=== PATIENT | female | born 1935 | race Caucasian/White ===

== ENCOUNTER 2017-03-24 20:47 | Inpatient (IN) ==
[2017-03-24 21:17] LABS: BASO% 0.1 % (0.0-0.8); EOS# 0.02 X1000 (0.0-0.7); EOS% 0.1 % (0.0-10.0); HEMATOCRIT 42.1 % (37.0-47.0); HEMOGLOBIN 14.3 g/dL (12.0-16.0); IMM GRAN# 0.08 X1000 (0.0-0.04); IMM GRAN% 0.4 % (0.0-0.5); LYMPH# 0.81 X1000 (1.2-3.4); LYMPH% 4.5 % (20.5-51.1); MANUAL DIFF NEEDED? NO; MCH 27.8 PG (27-31); MCV 81.7 FL (81-99); MONO# 0.62 X1000 (0.11-0.59); MONO% 3.5 % (1.7-9.3); MPV 11.3 FL (7.4-10.4); NEUT% 91.4 % (42.2-75.2); PLT 204 X1000 (130-400); RBC 5.15 XMIL (4.2-5.4)
[2017-03-24 21:23] LABS: INR 1.26; PROTIME 13.4 Seconds (9.2-11.7); PTT 28.8 Seconds (22.0-36.0)
--- NOTE | 2017-03-24 21:25 | Diag Imaging Result Doc PS360 ---
EXAM: CHEST-PORTABLE HISTORY: AMS TECHNIQUE: AP portable at 2120 COMMENT: The inspiration is somewhat suboptimal. The pulmonary vascularity appears to be increased. There are no previous studies available for comparison. The left ventricle is prominent. There is questionable opacity in the lingula. IMPRESSION: Cardiomegaly and increased pulmonary vascularity. Pulmonary edema versus pneumonia in the lingula. Electronically signed by Carlos Asher 03/24/2017 9:22 PM
[2017-03-24 21:43] LABS: ALBUMIN 4.3 g/dL (3.5-5.0); POTASSIUM 2.8 mmol/L (3.5-5.1); TOTAL BILIRUBIN 4.01 mg/dL (0.20-1.00); TOTAL PROTEIN 7.9 g/dL (6.3-8.3)
--- NOTE | 2017-03-24 21:48 | Diag Imaging Result Doc PS360 ---
EXAM: CT HEAD/C-SPINE W/O CONTRAST HISTORY: neck pain/swelling, syncope, unkown fall. TECHNIQUE: CT of the head and cervical spine without contrast COMMENT: The current study is compared with that of 02/11/2017. There is generalized cerebral atrophy. There is no evidence of mass effect, bleed, abnormal extra-axial fluid collection or hydrocephalus. Compared to the previous study the appearance the brain has not changed significantly. The visualized paranasal sinuses are clear. The calvarium appears to be intact. Cervical spine: There are degenerative disc and facet changes with uncovertebral arthropathy unchanged since the previous study of 02/11/2017. There is some curvature of the lower mid cervical spine with convexity to the right. There is disc space narrowing and mild osteophyte formation at C4-5 and C5-6. There is no evidence of prevertebral soft tissue swelling. No evidence of fracture or subluxation is present. IMPRESSION: No evidence of acute disease. Electronically signed by Carlos Asher 03/24/2017 9:46 PM
--- NOTE | 2017-03-24 21:52 | Diag Imaging Result Doc PS360 ---
EXAM: CT NECK W/O CONTRAST HISTORY: trauma TECHNIQUE: CT of the neck without contrast COMMENT: There is an 11 mm node in the left parotid gland. There is a 15 mm node posterior to the right submandibular gland. There are patchy pulmonary opacities present in the right upper lobe which may represent pneumonia. Some retained fluid is present in the esophagus. There is an apparent 5 mm nodule in the left vallecula. There are no abnormal fluid collections. The nasopharynx is normal in appearance. The mandible appears to be intact as does the hyoid bone and thyroid cartilages. IMPRESSION: Bronchopneumonia. Nonspecific nodes and mucosal nodule in the left vallecula. No evidence of acute posttraumatic change. Electronically signed by Carlos Asher 03/24/2017 9:50 PM
[2017-03-24 21:55] LABS: ALLEN TEST YES; BE -5.5 mmoll (-3.0-3.0); BLOOD TYPE ARTERIAL; DRAW SITE R RADIAL; METHB 1.4 % (0.0-1.5); O2(CT) 16.8 mL/dL (15.0-23.0); PCO2(98.6) 26 mmHg (35-45); PO2(98.6) 70 mmHg (60-100); SAMPLE BLOOD; SAO2 97.2 % (95.0-100.0); THB 12.7 g/dL (11.5-17.4); pH(98.6) 7.43 (7.35-7.45)
[2017-03-24 21:57] LABS: CK INDEX 1.3 (0.0-2.5); CK-MB 17.12 ng/mL (0.0-5.0)
[2017-03-24 21:57] LABS: MODALITY ROOM AIR
[2017-03-24 21:57] LABS: URINE MICRO REVIEW NEEDED? NO; URINE SOURCE CATH
[2017-03-24 22:01] LABS: BILIRUBIN URINE NEGATIVE (NEGATIVE); BLOOD URINE LARGE (NEGATIVE); COLOR YELLOW; GLUCOSE URINE NEGATIVE (NEGATIVE); LEUKOCYTES URINE NEGATIVE (NEGATIVE); NITRITE URINE NEGATIVE (NEGATIVE); PROTEIN URINE 50 mg/dL (NEGATIVE); SP GRAVITY URINE 1.007; TURBIDITY URINE HAZY (CLEAR); UROBILINOGEN URINE NORMAL (NORMAL)
[2017-03-24 22:02] LABS: UR EPITHELIAL CELLS <10 /HPF (<10); URINE BACTERIA 4+ /HPF; URINE CULTURE NEEDED? YES; URINE RBC <10 /HPF (<10); URINE WBC <10 /HPF (<10)
[2017-03-24 22:10] LABS: UR AMPHETAMINES QUAL NONE DETECTED (NONE DETECT); UR BARBITUATES QUAL NONE DETECTED (NONE DETECT); UR BENZODIAZEPIN QUAL NONE DETECTED (NONE DETECT); UR CANNABINOIDS QUAL NONE DETECTED (NONE DETECT); UR COCAINE QUAL NONE DETECTED (NONE DETECT); UR METHADONE QUAL NONE DETECTED (NONE DETECT); UR OPIATES QUAL NONE DETECTED (NONE DETECT); UR OXYCODONE QUAL NONE DETECTED (NONE DETECT); UR PCP QUAL NONE DETECTED (NONE DETECT)
[2017-03-24] MEDS ORDERED: NS 1,000 ML IV ONE (22:14)
[2017-03-25] MEDS ORDERED: ZOSYN 3.375 GM in NS 50 ML IV ONE (00:12)
[2017-03-25] MEDS ORDERED: VANCOMYCIN IV PER PHARMACY MISC SCH ×2 (00:15→04:52)
[2017-03-25] MEDS ORDERED: NS 50 ML ONE (00:30)
[2017-03-25 00:50] LABS: ALLEN TEST YES; BE -3.3 mmoll (-3.0-3.0); BLOOD TYPE ARTERIAL; DRAW SITE R RADIAL; METHB 1.1 % (0.0-1.5); MODALITY ROOM AIR; O2(CT) 16.6 mL/dL (15.0-23.0); PCO2(98.6) 27 mmHg (35-45); PO2(98.6) 66 mmHg (60-100); SAMPLE BLOOD; SAO2 96.6 % (95.0-100.0); THB 12.6 g/dL (11.5-17.4); pH(98.6) 7.46 (7.35-7.45)
[2017-03-25] MEDS ORDERED: VANCOMYCIN 1,500 MG in NS 250 ML IV ONE (01:00)
[2017-03-25] MEDS ORDERED: KLOR-CON PO ONE ×2 (03:20→05:45)
[2017-03-25] MEDS ORDERED: ZOFRAN IV PRN (04:52)
[2017-03-25] MEDS ORDERED: TYLENOL PO PRN (04:52)
--- NOTE | 2017-03-25 05:02 | HISTORY AND PHYSICAL ---
PRIMARY CARE PHYSICIAN: Dr. Sumner. CHIEF COMPLAINT: Status post fall, mental status changes. HISTORY OF PRESENTING ILLNESS: An 81-year-old elderly female with a history of hypertension, chronic kidney disease, who apparently was on the toilet when somehow she got confused or so and sloped over and the family had found her wedged between that the tub and the toilet. She was not really responsive at that time and the family had called EMS and patient was brought to the emergency department. In the ER, she was evaluated. She was more coherent. Patient is hard of hearing at baseline. However, she was so responding. She was noted to have markedly elevated white count and imaging had showed some infiltrates suspicious for pneumonia. Subsequently, she will need hospitalization for further management. At the time of my examination, the patient had denied any headache, chest pain, shortness of breath, hemoptysis but complained of not feeling well. PAST MEDICAL HISTORY: Includes hypertension, chronic kidney disease, colon polyps, hearing loss. PAST SURGICAL HISTORY: Colon surgery. ALLERGIES: No known drug allergies. CURRENT MEDICATIONS: As listed in the medication reconciliation sheet. SOCIAL HISTORY: She is a former smoker. No history of alcohol or illicit drug use. FAMILY HISTORY: Positive for coronary artery disease in mother. REVIEW OF SYSTEMS: Twelve point review of systems is limited due to patient is hard of hearing and somewhat confused. PHYSICAL EXAMINATION: GENERAL: Patient is resting comfortably now. VITAL SIGNS: Temperature 99.6 degrees, pulse 106, respirations 20, blood pressure 115/60. HEENT: Atraumatic, normocephalic. Extraocular movements intact. PERRLA. NECK: No masses. CHEST: Bibasilar rales. CARDIOVASCULAR: Regular rate and rhythm. ABDOMEN: Soft. Positive bowel sounds. EXTREMITIES: Trace edema. NEUROLOGIC: She is awake and arousable. GENITOURINARY: No bladder distention. SKIN: Warm. LABORATORIES AND STUDIES: WBC 17.88, hemoglobin 14.3, hematocrit 42.1, platelets 204,000. Sodium 140, potassium 2.8, chloride 97, CO2 is 14, BUN is 20, creatinine is 2.3, glucose is 155. Urine shows +4 bacteria. ASSESSMENT: An 81-year-old elderly female with a history of hypertension, chronic kidney disease and colon cancer/polyps, who apparently was found by family members wedged between the toilet and the tub. She was moderately disoriented and confused. She was brought to the emergency department where she was noted to have elevated white count and possible urinary tract infection and possible pneumonia as source of infection and it was suspected that she was septic and she will need hospitalization for further management. 1. Altered mental status, multifactorial. 2. Status post fall. 3. Sepsis with increase in the white count and possible source. 4. Suspected pneumonia. 5. Urinary tract infection. 6. Hypokalemia. 7. Hypertension. 8. Chronic kidney disease. PLAN: 1. We will admit patient to medical floor with telemetry at [place]. 2. We will continue with neuro checks. 3. We will check blood cultures. Start patient on IV antibiotics. 4. We will check urine cultures. 5. We will replace electrolytes. 6. Continue with gentle hydration. 7. Put patient on DVT prophylaxis with SCDs. 8. We will continue to follow and reassess. 9. Patient is full code. cc: Hari Drake MD
[2017-03-25] MEDS: NS 1,000 ML IV SCH ×3 (05:56→21:53)
[2017-03-25] MEDS: ZOSYN 3.375 GM in NS 50 ML IV SCH ×3 (05:56→17:02)
[2017-03-25 07:12] LABS: BASO% 0.1 % (0.0-0.8); HEMATOCRIT 37.3 % (37.0-47.0); HEMOGLOBIN 12.6 g/dL (12.0-16.0); IMM GRAN# 0.09 X1000 (0.0-0.04); IMM GRAN% 0.5 % (0.0-0.5); LYMPH# 0.77 X1000 (1.2-3.4); LYMPH% 4.7 % (20.5-51.1); MANUAL DIFF NEEDED? YES; MCH 27.4 PG (27-31); MCHC 33.8 g/dL (33-37); MCV 81.1 FL (81-99); MONO# 0.66 X1000 (0.11-0.59); MPV 10.7 FL (7.4-10.4); NEUT% 90.7 % (42.2-75.2); PLT 111 X1000 (130-400)
[2017-03-25 07:33] LABS: ALBUMIN 2.9 g/dL (3.5-5.0); CALCIUM 8.3 mg/dL (8.8-10.2); POTASSIUM 3.4 mmol/L (3.5-5.1); TOTAL BILIRUBIN 3.7 mg/dL (0.20-1.00)
[2017-03-25 08:44] LABS: BANDS 5 % (0-1); LYMPHS 6 % (21-51); MONO 3 % (1-9)
[2017-03-25] MEDS: TIMOPTIC 0.5% OPH SOLUTION BOTH EYES SCH (08:58)
[2017-03-25] MEDS: PROTONIX PO SCH (08:58)
[2017-03-25] MEDS: CELEXA PO SCH (08:58)
[2017-03-25] MEDS: NORVASC PO SCH (08:58)
[2017-03-25] MEDS: COLACE PO SCH (08:58)
--- NOTE | 2017-03-25 20:59 | Diag Imaging Result Doc PS360 ---
EXAM: US ABDOMEN-COMPLETE HISTORY: hepatitis TECHNIQUE: Abdominal ultrasound COMMENT: There is a cyst arising from the upper pole of the right kidney measuring 3.9 cm in diameter. There are two lower pole cysts of both of which exceed 2.5 cm in size. The visualized portions of the inferior vena cava, aorta and pancreas are within normal limits. Liver is unremarkable in appearance with antegrade flow in the portal vein. There is no evidence of biliary dilatation the common bile duct measuring 3 mm. The gallbladder contains stones which shadow and generally measure less than 5 mm in size. There is no sonographic Lehman sign or para cholecystic fluid. The gallbladder is not particularly distended. The spleen is not enlarged. There is no evidence of hydronephrosis. No abnormal fluid collections are present. IMPRESSION: Cholelithiasis. Electronically signed by Carlos Asher 03/25/2017 8:57 PM
--- NOTE | 2017-03-25 21:31 | PROGRESS NOTE ---
DATE: 03/25/2017 SUBJECTIVE: Today Ms. Hurt referred to be doing a little better. The daughter at the bedside who refers that the brother and the [id number] brought Ms. Hurt because they found her at the bathroom not very responsive. Patient understand was very disoriented and not very communicative. This morning she is more alert, she is more communicative. OBJECTIVE: Vital signs: Blood pressure is 109/72, pulse is 73, respiration is 18, temperature 99.3 degrees, patient is saturating 96% on room air. General: Ms. Hurt 81-year-old female. She was in bed, did not seems to be in any distress. HEENT: Mucosa slight dry. Anicteric. Acyanotic. Neck: Supple. Chest: Good air entry bilateral. There is no crepitations, no rhonchi. Cardiovascular: Regular rate and rhythm. There is no murmurs, no rubs, no gallops. Abdomen: Soft, nontender. Bowel sounds are present. There is no hepatosplenomegaly. Extremities: No pedal edema. Distal pulses are present. 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 Follows basic commands. LABORATORY DATA: WBC is 16.51, hemoglobin is 12.6, platelet count of 110,000. Sodium is 135, potassium is 3.4, chloride is 103, bicarb is 18. ABG reviewed from yesterday. The lactic acid was 5.90, is now 2.7. A CT scan of the neck which was done on presentation shows bronchopneumonia. Chest x-ray. Cardiomegaly with increased pulmonary vascularity, pulmonary edema versus pneumonia in the lingula. A head CT scan and cervical spine CT scan no evidence of acute disease. The blood cultures 2/2 positive for gram-negative rods and urine culture is also positive for gram- negative rods. ASSESSMENT: 1. Altered mental status on presentation secondary to sepsis. 2. Gram-negative dave urinary tract infection with bacteremia. 3. Bronchopneumonia. 4. High anion gap metabolic acidosis on presentation secondary to lactic acidosis improving. 5. Transaminitis. Etiology is unclear, suspect is due to sepsis induced hepatopathy, we will keep track of this. 6. Hypokalemia. We will replace this. The patient current medications include Zosyn and vancomycin for antibiotic coverage. Will repeat patient's chest x-ray tomorrow morning to followup on the lung findings. cc: Tod Abad MD
[2017-03-25] MEDS: ZOCOR PO SCH (21:51)
[2017-03-25] MEDS: XALATAN 0.005% OPH SOLN BOTH EYES SCH (21:52)
[2017-03-26] MEDS: ZOSYN 3.375 GM in NS 50 ML IV SCH ×2 (00:13→06:22)
[2017-03-26] MEDS: NS 1,000 ML IV SCH ×2 (01:22→12:20)
[2017-03-26 07:11] LABS: CALCIUM 7.9 mg/dL (8.8-10.2); EOS# 0.02 X1000 (0.0-0.7); EOS% 0.2 % (0.0-10.0); HEMATOCRIT 34.7 % (37.0-47.0); HEMOGLOBIN 11.4 g/dL (12.0-16.0); IMM GRAN# 0.04 X1000 (0.0-0.04); IMM GRAN% 0.3 % (0.0-0.5); LYMPH# 0.51 X1000 (1.2-3.4); LYMPH% 4.3 % (20.5-51.1); MANUAL DIFF NEEDED? YES; MCH 26.5 PG (27-31); MCHC 32.9 g/dL (33-37); MCV 80.5 FL (81-99); MONO# 0.49 X1000 (0.11-0.59); MONO% 4.1 % (1.7-9.3); MPV 10.7 FL (7.4-10.4); NEUT% 91.1 % (42.2-75.2); PLT 95 X1000 (130-400); POTASSIUM 3.4 mmol/L (3.5-5.1); RBC 4.31 XMIL (4.2-5.4)
[2017-03-26 08:11] LABS: LYMPHS 8 % (21-51); MONO 3 % (1-9)
[2017-03-26 08:42] LABS: ALBUMIN 2.7 g/dL (3.5-5.0); DIRECT BILIRUBIN 0.6 mg/dL (0.00-0.20); TOTAL BILIRUBIN 1.1 mg/dL (0.20-1.00); TOTAL PROTEIN 5.1 g/dL (6.3-8.3)
[2017-03-26] MEDS ORDERED: LEVAQUIN PO SCH (09:00)
[2017-03-26] MEDS ORDERED: KEFLEX PO SCH (09:00)
[2017-03-26] MEDS: CELEXA PO SCH (09:43)
[2017-03-26] MEDS: PROTONIX PO SCH (09:43)
[2017-03-26] MEDS: COLACE PO SCH (09:43)
[2017-03-26] MEDS: NORVASC PO SCH (09:44)
[2017-03-26] MEDS: TIMOPTIC 0.5% OPH SOLUTION BOTH EYES SCH (09:44)
[2017-03-26] MEDS: ROCEPHIN 1 GM in NS 50 ML IV SCH (15:29)
--- NOTE | 2017-03-26 16:39 | PROGRESS NOTE ---
DATE: 03/26/2017 SUBJECTIVE: Today Ms. Hurt referred to be doing okay. The daughter was at the bedside. At the time of the encounter. Ms. Hurt herself is kind of hard of hearing so the daughter has to be doing most of the interval history. OBJECTIVE: Vital signs: Blood pressure is 131/71, pulse of 69, respirations 16, temperature is 99.0 degrees. The patient is saturating 97% on room air. General: Ms. Hurt is an 81-year-old female. She is in bed. She did not seem to be in any remarkable distress. HEENT: Mucosa is pink, slightly dry. Anicteric. Acyanotic. Neck: Supple. Chest: Good air entry bilaterally. No crepitations. No rhonchi. Cardiovascular: Regular rate and rhythm. No murmurs. No rubs. No gallops. Abdomen: Soft, nontender. I did not appreciate any hepatosplenomegaly. Bowel sounds are present. Extremities: No pedal edema. Distal pulses are present. 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 Follows basic commands, but she is hard of hearing. LABORATORY DATA: WBC is down to 11.99, platelet count of 95,000, hematocrit is 11.4. There is no bands on the peripheral smear. Chemistry is also reviewed. Sodium is 136, potassium is 3.4, chloride is 106, bicarb is 20, creatinine is down to 1.3. Total bilirubin is down to 1.10, AST is 300, ALT is 165, alkaline phosphatase is also down to 168. An ultrasound of the abdomen which was done shows some cysts in the kidneys. There is no evidence of biliary dilation. The common bile duct measures 3 mm. However, the gallbladder contains stones which shadow and generally measure less than 5 mL. There is no sonographic Lehman sign or pericholecystic fluid. The gallbladder is not particularly dilated. Spleen is not enlarged. There is no evidence of hydronephrosis. No abnormal fluid collections are present. Cultures have shown urine culture is E. coli. Blood culture is also gram-negative dave and I believe it is probably also going to be an E. coli. ASSESSMENT: 1. Altered mental status on presentation, likely due to sepsis induced encephalopathy. Patient's mentation is now completely cleared. 2. Escherichia coli urinary tract infection. 3. Gram-negative dave bacteremia. I think this is also coming from the UTI and I suspect it is probably going to be E. coli as well. I have discontinued the vancomycin and also the Zosyn and switched the patient to ceftriaxone. I am waiting to see the final ID and sensitivity on the gram-negative in the blood and hopefully be able to switch the patient to something oral. 4. Bronchopneumonia on the chest x-ray. The patient will continue with the current antibiotics. 5. Transaminitis, likely due to sepsis induced hepatopathy versus ischemic liver injury. The liver enzymes seem to be gradually improving. We are going to be observing this. 6. Cholelithiasis without any acute cholecystitis. The patient has been notified about this and has been advised to follow up with surgeons at a later date. There is no acute indication to do any surgery now but I think down the line patient might probably benefit from this. The family member at the bedside has stated that the patient does not want any surgery. 7. High anion gap metabolic acidosis on presentation secondary to lactic acidosis, improved. 8. Hypokalemia. Will continued to replace this. PLAN: So in general I think Ms. Hurt is doing a lot better. We will switch the antibiotics to ceftriaxone for 1 daily administration. Once we get the ID on the blood culture we will probably be able to switch to oral if it is the same E. coli. We will keep a very close eye on the LFTs. The patient has been advised to follow up on outpatient basis with surgery. DISPOSITION: I think on a whole Ms. Hurt is doing well. She does not want to go to rehab. She prefers to go home with home health. We will consult social work with regards to that and get her discharged within 48 hours if she continues to show improvement. cc: Tod Abad MD
[2017-03-26] MEDS: ZOCOR PO SCH (21:24)
[2017-03-26] MEDS: XALATAN 0.005% OPH SOLN BOTH EYES SCH (21:25)
[2017-03-26] MEDS ORDERED: MELATONIN PO ONE (23:59)
[2017-03-27] MEDS: ULTRAM PO PRN ×2 (00:51→21:25)
[2017-03-27] MEDS: NS 1,000 ML IV SCH ×4 (00:54→21:26)
[2017-03-27 04:21] LABS: BASO% 0.1 % (0.0-0.8); EOS# 0.03 X1000 (0.0-0.7); EOS% 0.3 % (0.0-10.0); HEMATOCRIT 31.5 % (37.0-47.0); HEMOGLOBIN 10.6 g/dL (12.0-16.0); IMM GRAN# 0.05 X1000 (0.0-0.04); IMM GRAN% 0.5 % (0.0-0.5); LYMPH# 0.62 X1000 (1.2-3.4); LYMPH% 6.8 % (20.5-51.1); MANUAL DIFF NEEDED? YES; MCHC 33.7 g/dL (33-37); MCV 80.2 FL (81-99); MONO# 0.56 X1000 (0.11-0.59); MONO% 6.1 % (1.7-9.3); MPV 11.2 FL (7.4-10.4); NEUT% 86.2 % (42.2-75.2); PLT 86 X1000 (130-400); RBC 3.93 XMIL (4.2-5.4)
[2017-03-27 04:51] LABS: ALBUMIN 2.3 g/dL (3.5-5.0); CALCIUM 7.6 mg/dL (8.8-10.2); POTASSIUM 3.3 mmol/L (3.5-5.1); TOTAL BILIRUBIN 0.8 mg/dL (0.20-1.00); TOTAL PROTEIN 5.3 g/dL (6.3-8.3)
[2017-03-27 06:24] LABS: BANDS 1 % (0-1); LYMPHS 5 % (21-51); MONO 2 % (1-9)
[2017-03-27 06:25] LABS: HYPOCHROM OCCASIONAL
--- NOTE | 2017-03-27 06:45 | EKG Report ---
Test Performed on : 03/24/2017 8:44:37 PM Test Reason : SYNCOPE Blood Pressure : / mmHG Vent. Rate : 106 BPM Atrial Rate : 097 BPM P-R Int : 000 ms QRS Dur : 078 ms QT Int : 494 ms P-R-T Axes : 000 -33 -13 degrees QTc Int : 656 ms Atrial fibrillation. with rapid ventricular response. Left axis deviation Nonspecific ST abnormality Prolonged QT Abnormal ECG When compared with ECG of 11-FEB-2017 08:50, Atrial fibrillation. has replaced Sinus rhythm. Vent. rate has increased BY [address] now depressed in Anterior leads QT has lengthened Unconfirmed Result
[2017-03-27] MEDS: TIMOPTIC 0.5% OPH SOLUTION BOTH EYES SCH (09:34)
[2017-03-27] MEDS: NORVASC PO SCH (09:34)
[2017-03-27] MEDS: COLACE PO SCH (09:34)
[2017-03-27] MEDS: CELEXA PO SCH (09:34)
[2017-03-27] MEDS: PROTONIX PO SCH (09:37)
[2017-03-27] MEDS ORDERED: VANCOMYCIN 1 GM/NS 1 GM/250 ML IVPB IV SCH (13:00)
[2017-03-27] MEDS: ROCEPHIN 1 GM in NS 50 ML IV SCH (15:10)
--- NOTE | 2017-03-27 20:40 | PROGRESS NOTE ---
DATE: 03/27/2017 SUBJECTIVE: Patient without any new complaints. States she is still very tired and weak notes that she is having difficulty getting out of bed. Denies any chest pain, palpitations. Denies any GI or issues. Currently denies any skin rashes. PHYSICAL: Vital signs: Temperature 98.7, pulse 71, respiratory 22, BP 130/57. General: Patient is awake, alert, oriented. She is currently in no respiratory distress. She is pleasant to talk with. HEENT: Normocephalic, atraumatic. FILOMENA. Neck: Supple. No JVD. CV: Regular rate and rhythm. No murmurs. Chest: Clear. Nonlabored. Abdomen: Soft. Positive bowel sounds. Extremities: Moves all extremities but generalized weakness. ASSESSMENT: 1. Acute metabolic encephalopathy secondary to sepsis resolved. 2. Sepsis secondary to Escherichia coli resolved. 3. Escherichia coli urinary tract infection ventura sensitive. 4. Escherichia coli bacteremia. 5. Bronchopneumonia likely secondary to her Escherichia coli as well, continues to improve. 6. Transaminitis. Liver function tests are continuing to improve. 7. Cholelithiasis without cholecystitis. She is currently eating without any difficulty and therefore will not attempt surgery given her bacteremia as well as her urinary tract infection. 8. Hypokalemia. PLAN: Will continue patient on antibiotics. Continue physical therapy. Certainly expect that she is going to need rehab. Currently she declines this option. However she is unable to get out of bed over the next couple days then will have to readdress this. cc: Nico Hernandez MD
[2017-03-27] MEDS: ZOCOR PO SCH (21:24)
[2017-03-27] MEDS: MELATONIN PO SCH (21:25)
[2017-03-27] MEDS: XALATAN 0.005% OPH SOLN BOTH EYES SCH (21:25)
[2017-03-28] MEDS: PROTONIX PO SCH (06:22)
[2017-03-28] MEDS: ULTRAM PO PRN (06:23)
[2017-03-28] MEDS: NS 1,000 ML IV SCH (06:29)
[2017-03-28] MEDS: COLACE PO SCH (09:38)
[2017-03-28] MEDS: NORVASC PO SCH (09:38)
[2017-03-28] MEDS: CELEXA PO SCH (09:38)
[2017-03-28] MEDS: TIMOPTIC 0.5% OPH SOLUTION BOTH EYES SCH (09:39)
[2017-03-28 10:59] LABS: HEPATITIS PROFILE ACUTE SEE COMMENTS
--- NOTE | 2017-03-28 11:08 | Diag Imaging Result Doc PS360 ---
EXAM: FEMUR MIN 2 VIEWS RIGHT INDICATION: pain TECHNIQUE: 4 views COMPARISON: None. FINDINGS: There is no discrete fracture, dislocation, or significant intrinsic osseous lesion. There are mild degenerative changes at the knee. There is atherosclerotic calcification at the posteromedial thigh. IMPRESSION: Mild degenerative changes at the knee. No evidence of acute osseous abnormality. Electronically signed by Socrates Ludwig 03/28/2017 11:06 AM
--- NOTE | 2017-03-28 11:17 | Diag Imaging Result Doc PS360 ---
EXAM: XRAY HIP UNILATERAL RT HISTORY: pain TECHNIQUE: Two views COMPARISON: None. FINDINGS: No fracture. No dislocation. No significant joint space narrowing. Moderate atherosclerosis. IMPRESSION: No acute abnormality. Electronically signed by Sanjay Painting 03/28/2017 11:14 AM
--- NOTE | 2017-03-28 11:22 | Diag Imaging Result Doc PS360 ---
EXAM: FEMUR MIN 2 VIEWS LEFT INDICATION: PAIN TECHNIQUE: 4 views COMPARISON: None. FINDINGS: There is a small anterior enthesophyte at the patella. There is no discrete fracture, dislocation, or significant intrinsic osseous lesion, otherwise. There is minimal atherosclerotic disease at the acetabular roof on the left. There is atherosclerotic calcification at the right. IMPRESSION: Mild degenerative changes. No definite acute osseous abnormality. Electronically signed by Socrates Ludwig 03/28/2017 11:20 AM
[2017-03-28] MEDS: NORCO-5 PO PRN ×2 (13:56→20:27)
--- NOTE | 2017-03-28 14:07 | PROGRESS NOTE ---
DATE: 03/28/2017 SUBJECTIVE: The patient does complain of some right midthigh pain. It is to be recreated with palpation and it is aggravated with movement. OBJECTIVE: Vital Signs: Blood pressure is 119/49 with a heart rate of 61, respirations are 16, temperature is 98.4 degrees oral with room air saturations of 96%. General: Patient is awake and alert and oriented in no distress. Cardiovascular: Regular rate and rhythm. S1 and S2 appreciated. Pulmonary: Breath sounds are clear with no increased work of breathing noted. Gastrointestinal: Abdomen is soft, nontender, nondistended with bowel sounds in all 4 quadrants. Extremities: No clubbing, cyanosis, or edema. Calves are nontender. Pulses are palpable x4. ASSESSMENT: 1. Acute metabolic encephalopathy secondary to sepsis resolved. 2. Sepsis secondary to Escherichia coli resolved. 3. Escherichia coli urinary tract infection pansensitive. 4. Escherichia coli bacteremia. 5. Bronchopneumonia likely secondary to Escherichia coli as well improving. 6. Transaminitis improving. 7. Cholelithiasis without cholecystitis. She denies any nausea or vomiting. She is tolerating food with no difficulty. Due to her bacteremia and UTI we will not attempt surgery. We will arrange surgery followup on discharge. 8. Hypokalemia. Will trend labs are replete as appropriate. We will continue with her current regimen. Continue physical therapy. Will continue to recommend rehab to the patient as she continues to be unable to get out of bed. Dictated by ROXANNA Welsh for Nico Hernandez MD cc: ROXANNA Welsh MD
[2017-03-28] MEDS: ROCEPHIN 1 GM in NS 50 ML IV SCH (15:33)
--- NOTE | 2017-03-28 17:46 | Extremity Venous Study ---
EXAM: Venous U/S Right Leg HISTORY: pain, decreased sensation TECHNIQUE: Right lower extremity venous Doppler ultrasound COMPARISON: None. FINDINGS: There is normal flow in the veins of the right lower extremity. Normal augmentation. No thrombus. IMPRESSION: No evidence of deep venous thrombosis within the right lower extremity. Electronically signed by Sanjay Painting 03/28/2017 5:44 PM
[2017-03-28] MEDS: XALATAN 0.005% OPH SOLN BOTH EYES SCH (20:27)
[2017-03-28] MEDS: MELATONIN PO SCH (20:28)
[2017-03-28] MEDS: ZOCOR PO SCH (20:28)
--- NOTE | 2017-03-28 21:59 | PROGRESS NOTE ---
DATE: 03/26/2017 SUBJECTIVE: Patient notes that she is having right lower extremity pain, cannot really localize where the pain is. Denies any falling, denies any injury. Denies any swelling or redness to her leg. Denies any fevers or chills. PHYSICAL: Vital signs: Temperature 98.3, pulse 60, blood pressure 120/51, saturations 99% on room air. General: Patient is awake, alert, she is in no respiratory distress. She is extremely hard of hearing. HEENT: Normocephalic, atraumatic. FILOMEAN. Neck: Supple. No JVD. CV: Regular rate, no appreciable murmurs. Chest: Clear. Abdomen: Soft. Extremities: She is noted to move all extremities without any apparent difficulty however she does grimace when she moves the right lower extremity. ASSESSMENT: 1. Altered mental status secondary to sepsis appears improved. 2. Escherichia coli urinary tract infection. 3. Escherichia coli bacteremia. 4. Bronchopneumonia improved. 5. Cholelithiasis without cholecystitis. 6. Hypokalemia resolved. 7. Leukocytosis resolved. White count was 17 currently down to 9 . 8. Hypokalemia resolved. Potassium was 2.8 currently 3.3. 9. Acute renal failure resolved, creatinine on admission was 2.3 currently is back down to her baseline at 1.1. 10. Hyperbilirubinemia also resolved was 4 on admit, currently 0.8. 11. Right lower extremity pain. 12. Hypertension. PLAN: Will check x-ray of her right lower extremity although expect these to be negative. Will follow. Hopefully patient can be transitioned to rehab soon. Will continue antibiotics today, further orders as needed. cc: Nico Hernandez MD
[2017-03-29 06:16] LABS: HEMATOCRIT 33.6 % (37.0-47.0); HEMOGLOBIN 11.5 g/dL (12.0-16.0); MCHC 34.2 g/dL (33-37); MCV 78.9 FL (81-99); MPV 10.5 FL (7.4-10.4); RBC 4.26 XMIL (4.2-5.4)
[2017-03-29] MEDS: PROTONIX PO SCH (06:32)
[2017-03-29] MEDS: NORCO-5 PO PRN ×2 (06:38→16:41)
[2017-03-29 06:54] LABS: ALBUMIN 2.6 g/dL (3.5-5.0); POTASSIUM 3.3 mmol/L (3.5-5.1); TOTAL BILIRUBIN 0.5 mg/dL (0.20-1.00)
[2017-03-29] MEDS ORDERED: ZANAFLEX PO SCH (09:00)
--- NOTE | 2017-03-29 09:01 | Diag Imaging Result Doc PS360 ---
EXAM: LUMBAR SPINE 2-VIEWS HISTORY: RLE pain, decreased sensation TECHNIQUE: Lumbar spine AP and lateral three views COMMENT: There is osteophyte formation anteriorly in the lower thoracic spine and some wedging of the anterior portion of T12 is present. There is anterior osteophyte formation at L1-2. There is curvature of the lumbar spine with convexity to the right. There is generalized osteopenia. There is grade 1 anterolisthesis of L4 on L5 and vacuum disc phenomenon and disc space narrowing at L5 S1. There is apparent degenerative facet disease at the L4-5 level, presumably responsible for the spondylolisthesis. No definite evidence of acute fracture or subluxation is present. There are no previous studies. IMPRESSION: Degenerative disc and facet disease as described with scoliosis. Electronically signed by Carlos Asher 03/29/2017 8:59 AM
[2017-03-29] MEDS: CELEXA PO SCH (09:26)
[2017-03-29] MEDS: COLACE PO SCH (09:27)
[2017-03-29] MEDS: NORVASC PO SCH (09:27)
[2017-03-29] MEDS: TIMOPTIC 0.5% OPH SOLUTION BOTH EYES SCH (10:30)
--- NOTE | 2017-03-29 13:28 | DISCHARGE SUMMARY ---
ADMISSION DATE: 03/25/2017 DISCHARGE DATE: 03/29/2017 DIAGNOSES: 1. Altered mental status secondary to sepsis. 2. Escherichia coli urinary tract infection. 3. Escherichia coli bacteremia. 4. Bronchopneumonia improved. 5. Cholelithiasis without cholecystitis. 6. Leukocytosis improving. 7. Hypokalemia. 8. Acute kidney injury resolved. 9. Hypertension. MICROBIOLOGY: 1. Cath urine revealed E. Coli. 2. Blood culture revealed E. coli. HOSPITAL COURSE: Ms Hurt presented to the hospital with altered mental status after having a fall. She was found to have sepsis which was ultimately found to be E. coli urosepsis as well as bacteremia for which she received Zosyn and vancomycin. She has been transitioned over to oral antibiotics. Thankfully, she has improved. She is back to her baseline per family members. She did complain of right lower extremity pain, stated that the pain was about mid thigh radiating to her knee. This did increase with movement of her right lower extremity as well as sitting. Lying did relieve it somewhat. X-rays of the right femur, hip revealed no acute abnormality. Venous Doppler study revealed no DVT. Arterial studies were negative for any occlusion. Lumbar spine x- ray was performed and it did reveal grade 1 anterolisthesis of L4-5 and vacuum disk phenomenon and the disk space narrowing at L5-S1 with an apparent degenerative facet disease at L4-L5. No evidence of acute fracture or subluxation is present. We did trend the patient' s electrolytes and we did replete as appropriate as she did come in with a creatinine of 2.3 and as we hydrated, it has returned to 1. LFTs were elevated and they have gradually come down throughout the hospitalization. Hepatitis panel was nonreactive. DISCHARGE PHYSICAL EXAM: Cardiovascular: Regular rate and rhythm. S1 and S2 appreciated. Pulmonary: Breath sounds are clear. No increased work of breathing noted. Gastrointestinal: Abdomen is soft, nontender, nondistended with bowel sounds in all 4 quadrants. Extremities: No clubbing, cyanosis, or edema to upper extremities and left lower. She does have some edema to her right lower extremity, which is chronic according to her family. Discharge vital signs: Blood pressure is 108/46, heart rate of 60, respirations 18, temperature 98.9 degrees with room air saturations of 97%. DISCHARGE MEDICATIONS: 1. Norvasc 5 mg q.a.m. 2. Celexa 20 mg q.a.m. 3. Colace 200 mg daily. 4. Simvastatin 20 mg at bedtime. 5. [place] 5 mg 1 q.6 hours p.r.n. 6. Celexa 20 mg daily. 7. Timoptic 0.5% 1 drop to both eyes daily. 8. Protonix 40 mg daily. 9. Levaquin 500 mg daily for 7 days. DISPOSITION: She is being discharged to rehab in stable condition with family members. TIME SPENT: This is a greater than 30 minutes discharge. Dictated by ROXANNA Welsh for Nico Hernandez MD cc: ROXANNA Welsh MD MTDD
[2017-03-29 15:35] VITALS: BP 122/53
[2017-03-29] MEDS: ROCEPHIN 1 GM in NS 50 ML IV SCH (16:40)
--- NOTE | 2017-03-30 14:34 | VASCULAR LAB ---
PROCEDURE NAME: Arterial Bilateral Legs - 03/29/2017 LOWER EXTREMITY ARTERIAL STUDY: REFERRING PHYSICIAN: Nico Hernandez MD. READING PHYSICIAN: Amilcar Lundberg MD. YARD CONDUCTOR: Jenny. INDICATION: Right leg pain and decreased sensation. FINDINGS: Pulse volume waveforms show pulsatile flow throughout both lower extremities. Segmental pressures; right brachial 126, high thigh 183, low thigh 161, popliteal 158, dorsalis pedis 166, posterior tibial 144, toe pressure 113, JORGE 1.3. Left brachial pressure 113, high thigh 179, low thigh 166, popliteal 165, dorsalis pedis 122, posterior tibial 135, toe pressure 118, JORGE 1.0. INTERPRETATION: The waveforms appear to be normal bilaterally. There is some small change in pressures distally in the left leg, indicating some mild stenosis below the knee; however, it does not seem to be enough to be consistent with claudication. Perhaps a study with exercise would illuminate this better. cc: MD Shoshana Hidalgo CRNP
--- NOTE | 2017-03-31 03:44 | DISCHARGE SUMMARY ---
ADMISSION DATE: 03/25/2017 DISCHARGE DATE: 03/29/2017 ADDENDUM: DISCHARGE DIAGNOSES: 1. Altered mental status, resolved. 2. Adult failure to thrive. 3. Escherichia coli bacteremia. 4. Escherichia coli urinary tract infection. Patient was seen and examined by me this morning. She is currently in no respiratory distress. She is still having some right lower extremity pain, although she has had negative deep vein thrombosis workup as well as negative x-rays. Certainly feel though this is more a lumbar sacral issue. The patient is still having extreme difficulty standing and walking secondary to generalized weakness. She will be transferred to rehab with further. Physical therapy at rehab. If needed, she will have further workup of her low back pain and right leg pain during rehab. cc: Nico Hernandez MD
--- NOTE | 2017-04-11 02:25 | PROVIDER DOCUMENTATION ---
This chart was entered by Alexandra Olvera Scribe, acting as scribe for Alek Cason MD. HPI-Syncope/Dizziness - General Chief Complaint: Syncope Stated Complaint: SYNCOPE Time Seen by Provider: 03/24/17 21:25 Source: patient, family Allergies/Adverse Reactions: Patient Allergies Allergy/AdvReac Type Severity Reaction Status Date / Time No Known Allergies Allergy Verified 02/11/17 08:30 Home Medications: Home Medication List Medication Instructions Recorded Confirmed Last Taken Type Citalopram Hydrobromide 20 mg PO QAM 02/11/17 03/25/17 03/24/17 08:00 History [Citalopram HBr] Docusate Sodium [Colace] 200 mg PO DAILY #60 capsule 02/11/17 03/25/17 Unknown Rx Simvastatin 20 mg PO QHS 02/11/17 03/25/17 03/23/17 History Amlodipine Besylate 5 mg PO QAM 03/25/17 03/25/17 03/24/17 08:00 History Hydrocodone Bit/Acetaminophen 1 each PO Q6HR PRN 03/25/17 03/25/17 Unknown History [Hydrocodon-Acetaminophen 5-325] Latanoprost 0.005% Oph Soln 1 drop BOTH EYES HS 03/25/17 03/25/17 03/23/17 History [Xalatan 0.005% Oph Soln] Pantoprazole Sodium 40 mg PO QAM 03/25/17 03/25/17 03/24/17 08:00 History Timolol 0.5% Oph Solution 1 drop BOTH EYES DAILY 03/25/17 03/25/17 03/24/17 08: 00 History [Timoptic 0.5% Oph Solution] Levofloxacin [Levaquin] 500 mg PO DAILY #7 tablet 03/29/17 Unknown Rx - History of Present Illness-Syncope/Dizzy Nature of Presenting Problem: 81 year-old female presents to the ER via EMS. She lives with her son and [id number]. The son returned home from work around 15:30 and his mother was in the restroom, and indicated she was fine. Her DIL checked on her a short time later, and again the patient indicated that she was fine. They checked on her again a short time later and heard her moaning. She appeared to have fallen from the toilet and was pinned between the toilet and cabinet. 911 was called for help. Her neck appeared to be swollen and she was placed in a C-collar. No other symptoms are presented at this time. Prior Episodes: reports: single episode today Onset/Duration: reports: 1-3 hours ago Timing: reports: improving Position/Activity at time of episode: reports: sitting Symptoms prior to episode: reports: none Context: reports: unknown Loss of Consciousness: unsure Location of injury. (If syncope resulted in an injury.): reports: neck Current Symptoms: reports: fever Recently Seen Here or By Another Healthcare Provider: No - Dizziness Severity in ED: reports: moderate Any recent trauma/injury?: reports: none Modifying Factors: improves with: nothing Patient usually:: reports: walks without assistance Review of Systems - Adult - REVIEW OF SYSTEMS - ADULT ROS:: ROS per family Constitutional: reports: see HPI Eyes: reports: no symptoms reported, see HPI Ears, Nose, Mouth & Throat: reports: no symptoms reported, see HPI Cardiovascular: reports: no symptoms reported, see HPI Respiratory: reports: no symptoms reported, see HPI Gastrointestinal: reports: no symptoms reported, see HPI Genitourinary: reports: no symptoms reported, see HPI Musculoskeletal: reports: see HPI, other (Possible neck injury) Integumentary: reports: no symptoms reported, see HPI Neurological: reports: see HPI, syncope Psychiatric: reports: no symptoms reported, see HPI All Other Systems: Reviewed and Negative Past History - Adult - PAST MEDICAL HISTORY-ADULT Review of Records: reports: Old Records Reviewed, Nursing Assessment Review, Medications Reviewed, Social history reviewed & non-contributory. Physical Exam-General - PHYSICAL EXAM-ADULT Initial Vital Signs Reviewed: Yes - CONSTITUTIONAL General Appearance: alert, other (Ill appearing.) - EYES Eyes: PERRL/EOMI - HEAD, EARS, NOSE, MOUTH & THROAT HENMT: normocephalic/atraumatic, moist mucous membranes, normal ENT inspection - NECK Neck: non-tender, full range of motion, supple - RESPIRATORY Respiratory: chest non-tender, lungs clear, normal breath sounds - CARDIOVASCULAR Cardiovascular: normal peripheral pulses, regular rate, rhythm - GASTROINTESTINAL (ABDOMEN) Abdominal Exam: normal bowel sounds, non tender - MUSCULOSKELETAL Extremity: normal range of motion Progress - PLAN OF CARE/RESULTS Progress/Plan/Lab Results: Orders Category Date Time Status Admit - [facility] - [facility] Routine AdmDCTranf 03/25/17 04:52 Ordered Activity - Up with Assistance ORDERED Care 03/25/17 04:52 Active Apply Mechanical Device [QM] ORDERED Care 03/25/17 04:52 Active Cardiac Monitoring DIRECTED Care 03/24/17 20:54 Completed Finger Stick Blood Sugar (ED) DIRECTED Care 03/24/17 20:54 Completed [place] Cath Insertion ORDERED Care 03/25/17 00:13 Inactive Intake and Output-Strict ORDERED Care 03/24/17 22:02 Completed Intake and Output-Strict ORDERED Care 03/25/17 04:52 Active Notify MD/PA/INDEPENDENT MARKETING CONSULTANT for exam NOW Care 03/24/17 22:02 Inactive Oxygen Therapy- ED Nursing DIRECTED Care 03/24/17 20:54 Completed Repeat Vital Signs .Blood Pressure Care 03/24/17 22:02 Inactive Repeat Vital Signs .Heart Rate Care 03/24/17 22:02 Inactive Repeat Vital Signs .Oxygen Saturation Care 03/24/17 22:02 Inactive Repeat Vital Signs .Respiratory Rate Care 03/24/17 22:02 Inactive Repeat Vital Signs .Temp Care 03/24/17 22:02 Inactive Saline Loc NOW Care 03/24/17 20:54 Completed Z-Document. for Tele Applied ORDERED Care 03/25/17 04:52 Completed Heart Healthy Diet Diet 03/25/17 02:47 Completed CHEST-PORTABLE [RAD] Stat Exams 03/24/17 20:[address] HEAD/C-SPINE W/O CONTRAST [CT] Stat Exams 03/24/17 21:[address] NECK W/O CONTRAST [CT] Stat Exams 03/24/17 21:25 Completed ABG [RESP] Routine Lab 03/24/17 21:46 Completed ABG [RESP] Routine Lab 03/25/17 00:46 Completed ALCOHOL BLOOD Stat Lab 03/24/17 20:50 Completed BASIC METABOLIC PANEL [CHEM] Routine Lab 03/26/17 06:15 Completed BLOOD CULTURE [BLDCUL] Stat Lab 03/24/17 22:00 Completed CBC WITH DIFF [HEME] Routine Lab 03/26/17 06:15 Completed CBC WITH ELECTRONIC DIFF [HEME] Stat Lab 03/24/17 20:50 Completed CK PROFILE [SP CHEM] Stat Lab 03/24/17 20:50 Completed COMPREHENSIVE METABOLIC PANEL [CHEM] Stat Lab 03/24/17 20:50 Completed GRAM STAIN [BLDCUL] Stat Lab 03/24/17 22:00 Completed GRAM STAIN [BLDCUL] Stat Lab 03/24/17 22:25 Completed PROTIME WITH INR [COAG] Stat Lab 03/24/17 20:50 Completed PTT [COAG] Stat Lab 03/24/17 20:50 Completed TROPONIN T Stat Lab 03/24/17 20:50 Completed URINALYSIS W/POSS RFLX CULT-1 [URINALYSIS] Stat Lab 03/24/17 21:45 Completed URINE CULTURE [RM] Routine Lab 03/24/17 22:07 Completed URINE DRUG SCREEN Stat Lab 03/24/17 21:45 Completed 0.9% Sodium Chloride Inj [Ns] 1,000 ml Med 03/25/17 04:52 Discontinued IV 100 mls/hr 0.9% Sodium Chloride Inj [Ns] 1,000 ml Med 03/24/17 22:14 Discontinued IV As Directed 0.9% Sodium Chloride Inj [Ns] 50 ml Med 03/25/17 00:30 Discontinued .ROUTE As Directed Acetaminophen [Tylenol] Med 03/25/17 04:52 Discontinued 650 mg PO Q6H PRN PRN Amlodipine [Norvasc] Med 03/25/17 09:00 Discontinued 5 mg PO QAM Citalopram [Celexa] Med 03/25/17 09:00 Discontinued 20 mg PO QAM Docusate Sodium [Colace] Med 03/25/17 09:00 Discontinued 200 mg PO DAILY Latanoprost 0.005% Oph Soln [Xalatan 0.005% Oph Soln] Med 03/25/17 21:00 Discontinued 0 ml BOTH EYES HS Ondansetron [Zofran] Med 03/25/17 04:52 Discontinued 4 mg IV Q4H PRN PRN Pantoprazole [Protonix] Med 03/25/17 09:00 Discontinued 40 mg PO QAM Pharmacy Order [Vancomycin IV Per Pharmacy] Med 03/25/17 00:15 Discontinued 1 each MISC DIRECTED Pharmacy Order [Vancomycin IV Per Pharmacy] Med 03/25/17 04:52 Discontinued 1 each MISC DIRECTED Piperacillin/Tazobactam [Zosyn] 3.375 gm Med 03/25/17 00:12 Discontinued 0.9% Sodium Chloride Inj [Ns] 50 ml IV NOW Piperacillin/Tazobactam [Zosyn] 3.375 gm Med 03/25/17 06:00 Discontinued 0.9% Sodium Chloride Inj [Ns] 50 ml IV Q6H SIMVAstatin [Zocor] Med 03/25/17 21:00 Discontinued 20 mg PO QHS Timolol 0.5% Oph Solution [Timoptic 0.5% Oph Solution] Med 03/25/17 09:00 Discontinued 0 ml BOTH EYES DAILY Vancomycin 1,500 mg Med 03/25/17 01:00 Discontinued 0.9% Sodium Chloride Inj [Ns] 250 ml IV NOW EKG [EKG] Stat Ther 03/24/17 20:54 Draft Transfer/Admit Order [TRANSFER] Routine Transfer 03/25/17 02:43 Completed Result Diagrams: 03/29/17 05:45 03/29/17 05:45 - EKG 1 Time of EKG reading by physician:: 20:44 EKG Read and Signed by:: Alek Cason EKG Interpretation (*Must complete 3 of following elements*): Abnormal Rate: 106 Rhythm: A-fib with RVA Hoffman: left (PRT axis * -33 -13.) QRS: normal (QRS duration [address] ST Wave: non-specific ST changes Comments: Prolonged QT. Departure - Departure Date of Disposition Decision: 03/25/17 Time of Disposition Decision: 23:00 DIAGNOSIS: Syncope and collapse Disposition: ADMITTED INPATIENT 09 Certified Medical Emergency: Emergent Condition: Stable - Critical Care Note This patient required my direct & personal management of CC.: No Attestation - Physician/ TONEY Attestation Patient care was provided by Advanced Practice Provider:: No The physician spent face to face time with patient:: Yes Advanced Practice Provider documentation review:: Supervising physician onsite and consulted in the evaluation and care of this patient. The physician did have a face to face encounter with the patient. This chart was documented by the indicated scribe, (Alexandra Olvera, Rene) and accurately reflects the services I performed and decisions made by me, Alek Cason MD, as attested by the provider's signature.
== END 2017-03-29 17:21 ==
LOC: ED 20:47 → P.MEDSURG 03-25 02:57 → SUATTDRO 03-25 02:57
PROVIDERS: ATTEND Family Medicine